=== PATIENT | male | born 1955 | race Caucasian/White ===

== ENCOUNTER 2021-07-31 03:09 | Emergency (ER) | payer MEDICARE, OTHER, SELFPAY ==
[2021-07-31 03:10] VITALS: BP 193/103; PULSE 57; RESP 14; TEMP 36.1; O2SAT 100; BMI 29.6
--- NOTE | 2021-07-31 03:17 | ED.RN ---
PATIENT REFUSES TO TALK AT THIS POINT. PATIENT ONLY MOANING.
--- NOTE | 2021-07-31 03:28 | EKG12_ITS ---
Test Reason : DYSRHYTHMIA Blood Pressure : / mmHG Vent. Rate : 054 BPM Atrial Rate : 054 BPM P-R Int : 156 ms QRS Dur : 078 ms QT Int : 444 ms P-R-T Axes : 062 -07 033 degrees QTc Int : 421 ms Sinus bradycardia with sinus arrhythmia with Premature ventricular complexes or Fusion complexes Nonspecific ST abnormality Abnormal ECG Confirmed by AUGUSTINE KNIGHT, SAL ([id number]), editor map JOANIE GRAYSON ([id number]) on 07/31/2021 10:00:27 AM Referred By: PABLO Confirmed By:SAL BRADSHAW MD
--- NOTE | 2021-07-31 03:29 | EX.ED.DYSGE1 ---
HPI History of Present Illness Chief Complaint: Nausea/Vomiting Informant: patient and spouse/S.O. Narrative Narrative: Patient presents with nausea vomiting. Patient has had 10-15 of these episodes in the last year to year and a half. He has been seen multiple times for these. He evidently has had extensive work-up with multiple x-rays CTs labs. Nothing is ever shown the cause. All of them occurred the same way. They started off with a very abnormal foul smelling odor that he senses and nobody else can smell. It then progresses to nausea vomiting. When he gets bad he has trouble talking but is able to. He has never had focal neurologic deficits. Symptoms last anywhere between hours and days. They have learned that if they drink Powerade early on it will tend to help them. They are visiting here from [place] so did not have Powerade available. Patient denies history of migraines. He does not get headaches with these. He will get some cramping of the abdomen but generally has no pain. Past medical history: Coronary artery disease, back pain, high cholesterol Medications include: Atorvastatin, metoprolol, Plavix, aspirin, co-Q10, tamsulosin Allergy to tetanus Surgeries include 2 back surgeries, cholecystectomy, Dilaudid pain pump for chronic back pain Non-smoker, lives with [facility] Medical History High cholesterol Hypertension Myocardial infarct Home Medications promethazine 25 mg PO TID PRN #10 tab 07/31/21 [Rx Last Taken Unknown] Allergy/AdvReac Type Severity Reaction Status Date / Time tetanus and diphtheria Allergy PT UNSURE Verified 07/31/21 03:14 toxoids OF REACTION Surgical History History of cholecystectomy Social History Smoking Status: Never smoker ROS ROS ED Constitutional Constitutional ED: Denies chills or fever(s) Eyes Eyes: Denies blurry vision ENT ENT ED: Reports other Details: See history of present illness regarding changes in smell. ; Denies rhinorrhea or sore throat Cardiovascular Cardiovascular: Denies chest pain or palpitations Respiratory/Chest Respiratory/Chest: Denies cough, dyspnea or sputum Gastrointestinal Gastrointestinal: Reports nausea, vomiting and other Details: Occasional cramping with vomiting but no pain. ; Denies abdominal pain or diarrhea Genitourinary Genitourinary ED: Denies dysuria, hematuria or urinary frequency Musculoskeletal Musculoskeletal: Denies myalgias Integumentary Denies rash Neurologic Neurologic: Denies headache(s), paresthesias or weakness Endocrine Endocrinology: Denies polydipsia or polyuria Allergic/Immunologic Allergic/Immunologic ED: Denies mouth swelling, tongue swelling or urticaria EXAM Physical Exam Const Vital Signs: 07/31/21 03:10 07/31/21 04:50 07/31/21 05:14 Temperature 96.9 F L Temperature Source Temporal Pulse Rate 57 L 68 74 Respiratory Rate 14 18 16 Blood Pressure 193/103 H 183/94 H Blood Pressure Mean 133 Pulse Ox 100 97 97 Oxygen Delivery Method Room Air Room Air Positive well nourished and well developed General Appearance ED: well developed and NAD; Negative for cyanotic, diaphoretic or pallor HEENT Reports moist mucous membranes Eyes PERRL and EOMs intact bilaterally Neck supple and no JVD Chest Wall inspection of chest normal Resp normal respiratory effort and clear to auscultation bilaterally Resp Narrative: Saturations are 100% on room air showing no hypoxia. Effort and Inspection: Negative for pain with movement Auscultation: Negative for rales, rhonchi or wheezes Cardio regular rate, regular rhythm and no murmurs Rate: other Other Details: Heart rate is slightly at the lower end ranging anywhere from high 50s to mid 60s. It is red. GI normal to inspection, nondistended, normoactive bowel sounds and non-tender GI Narrative: Despite his recurrent vomiting, his abdomen is quite benign. He does have a pain pump palpable in the left lower quadrant. Palpation: soft Back/Spine no CVA tenderness Extremity normal to inspection General Extremety ED: Negative for edema or tenderness General Extremity: Negative for edema Neuro oriented x3 Sensorium / Orientation: alert; Negative for orientation impaired, lethargic or stuporous Psych mental status grossly normal Skin no rashes or lesions noted General Skin Exam: Negative for jaundice or pallor MDM MDM MDM Narrative Medical decision making narrative: Patient is EKG showed no acute process. CBC showed normal white count hemoglobin and platelets. Electrolytes are essentially unremarkable. There is minimal elevation of chloride and the glucose was slightly elevated to 155. Total bilirubin was just over normal at 1.10 but all other liver function test were normal. Lipase was normal. Troponin was normal. Patient was rechecked. He is quiet resting and doing much better. I talked with him and his . His symptoms match intestinal or abdominal migraine. Although these are not as common in adults they do occur. Every single 1 of these episodes has been started after an abnormal strong smell but only the patient could smell. He has been evaluated even for seizures reportedly. These evaluations were also negative. I think the combination of the aura of smell, cramping, nausea vomiting lasting for hours to days with complete resolution between episodes and having episodes every few weeks is most consistent with an abdominal migraine. I will write for some Phenergan as an option to take. They should keep Powerade with them as this does seem to help him. He drank some of the Powerade I had for them here. When we got the patient up to walk around, he got more nauseated. For this reason we will give him some Phenergan and Zofran to see if that will help him. He has improved but still feels a bit nauseated now. He did get better with Phenergan and Zofran. They will go home at this time. We discussed reasons to return. Lab Data Labs: Laboratory Results - last 24 hr 07/31/21 07/31/21 07/31/21 03:15 03:15 03:15 WBC 9.2 RBC 5.17 Hgb 15.1 Hct 41.7 MCV 80.7 MCH 29.2 MCHC 36.2 H RDW Std Deviation 37.3 RDW Coeff of [place] 12.9 Plt Count 198 MPV 10.0 Immature Gran % (Auto) 0.700 Neut % (Auto) 79.5 H Lymph % (Auto) 14.9 L [place] % (Auto) 4.4 Eos % (Auto) 0.2 Baso % (Auto) 0.3 Absolute Neuts (auto) 7.3 Absolute Lymphs (auto) 1.37 Nucleated RBC % 0 Sodium 140 Potassium 3.6 Chloride 109 H Carbon Dioxide 21.0 Anion Gap 10 BUN 13 Creatinine 1.11 Estim Creat Clear Calc 74.05 Est GFR (MDRD) Af Amer 85 Est GFR (MDRD) Non-Af 70 BUN/Creatinine Ratio 11.7 Glucose 155 H Calcium 9.6 Total Bilirubin 1.10 H AST 22 ALT 35 Alkaline Phosphatase 79 Troponin I High Sens 10 Total Protein 7.7 Albumin 4.1 Globulin 3.6 Albumin/Globulin Ratio 1.1 Lipase 75 EKG Initial EKG: Comments: EKG done for nausea vomiting in a male with history of heart disease. EKG read by me shows sinus rhythm with bradycardic rate of 54. There are some PVCs. No acute ST elevation or depression. OH interval, QRS duration and QTc normal. This is essentially unchanged from prior done by EMS at 02:58 this morning. I have no other prior available to me. Discharge Plan Triage Chief Complaint: Nausea/Vomiting ED Provider: Vijay Oates Dx/Rx/DC Orders Clinical Impression: Nausea & vomiting, Abdominal migraine Instructions: Cyclic Vomiting Syndrome Ch, ED Cyclic Vomiting Syndrome, ED Vomiting (Adult) Prescriptions: New promethazine 25 mg tablet 25 mg PO TID PRN (Reason: nausea and vomiting) Qty: 10 RF: 0 Referrals: FIDELIA DAILEY [Other] - 3-5 Days if not improving Disposition Disposition: Home, Self Care Discharge Date/Time: 07/31/21 05:17
[2021-07-31] MEDS: DiphenhydrAMINE 50 MG/ML Syringe IV (03:39)
[2021-07-31] MEDS: 0.9% Normal Saline 1,000 ML 1000 ML IV (03:39)
[2021-07-31 03:40] LABS: Absolute Lymphocyte Count 1.37 X10^3/uL (0.83-4.51); Absolute Neutrophil Count 7.3 X10^3/uL (2.0-7.7); Basophil# 0.03 X10^3/uL; Basophil% 0.3 % (0-1); Eosinophil# 0.02 X10^3/uL; Eosinophils% 0.2 % (0-5); Hematocrit 41.7 % (40-54); Hemoglobin 15.1 g/dL (13.0-16.5); Lymphocyte # 1.37 X10^3/ul (0.83-4.51); Lymphocyte % 14.9 % (19-41); Mean Corp Hgb Conc 36.2 g/dL (32-36); Mean Corpuscular Hgb 29.2 pg (27.0-32.0); Mean Corpuscular Volume 80.7 fL (80-94); Monocyte% 4.4 % (0-10); NRBC Flagged by Analyzer 0 % (0-5); Neutrophil % 79.5 % (47-70); Platelet Count 198 K/mm3 (150-450); RBC Distribution Width CV 12.9 % (11.6-14.6); RBC Distribution Width SD 37.3 fl (35.1-43.9); Red Blood Count 5.17 M/mm3 (4.6-6.2); White Blood Count 9.2 K/mm3 (4.4-11.0)
[2021-07-31] MEDS: proCHLORPERazine 10 MG/2 ML Vial IV (03:41)
[2021-07-31 03:52] LABS: ALB/GLOB Ratio 1.1 RATIO (0.9-2.4); AST(SGOT) 22 U/L (15-37); Alanine Aminotransfer ALT/SGPT 35 U/L (16-61); Albumin, Serum 4.1 g/dL (3.2-5.0); Alkaline Phosphatase 79 U/L (45-117); Anion Gap 10 (5-15); BUN 13 mg/dL (7-18); BUN/Creat Ratio 11.7 RATIO (10-20); Calcium,Total 9.6 mg/dL (8.5-10.1); Chloride 109 mmol/L (98-107); Creatinine, Serum 1.11 mg/dL (0.70-1.30); EST Glomerular Filtration Rate 70 mL/min (>60); Est Glom Filt Rate - Afr Amer 85 mL/min (>60); Estimated Creatinine Clearance 74.05 ml/min; Globulin 3.6 g/dL (2.2-4.2); Glucose 155 mg/dL (74-106); Lipase 75 U/L (73-393); Potassium 3.6 mmol/L (3.5-5.1); Protein, Total 7.7 g/dL (6.4-8.2); Sodium Level 140 mmol/L (136-145)
[2021-07-31 04:05] LABS: Troponin-I HS 10 pg/mL (3.0-78.0)
[2021-07-31] MEDS: Ondansetron ODT 4 MG Tablet PO (04:46)
[2021-07-31] MEDS: proMETHazine 25 MG/ML Syringe 12.5 MG IM (04:47)
[2021-07-31 04:50] VITALS: BP 183/94; PULSE 68; RESP 18; O2SAT 97
[2021-07-31 05:14] VITALS: PULSE 74; RESP 16; O2SAT 97
== END 2021-07-31 05:17 | disposition home or self-care (01) ==
PROVIDERS: Emergency Provider Emergency Medicine; Visit Provider Emergency Medicine
DX: G43.D0 Abdominal migraine, not intractable (principal); I25.10 Atherosclerotic heart disease of native coronary artery without angina pectoris; I10 Essential (primary) hypertension; I25.2 Old myocardial infarction; E78.00 Pure hypercholesterolemia, unspecified; Z79.02 Long term (current) use of antithrombotics/antiplatelets; Z79.82 Long term (current) use of aspirin; Z79.899 Other long term (current) drug therapy
CPT/HCPCS: 80053; 83690; 84484; 85025; 93005; 96361; 96372; 96374; 96375; 99285; J7030